=== PATIENT | male | born 1945 | race Caucasian/White ===

== ENCOUNTER → 2023-11-24 12:40 | Outpatient (REF) | payer MEDICARE, SELFPAY | LOC: HWRAD 12:40 | PROVIDERS: ATTENDING PHYSICIAN Radiology Diagnostic Radiology; FAMILY PHYSICIAN Family Medicine | DX: Z13.5 Encounter for screening for eye and ear disorders (principal) | CPT/HCPCS: 70030 ==

== ENCOUNTER → 2023-11-26 16:47 | Outpatient (REF) | payer MEDICARE, SELFPAY | LOC: MRI 16:47 | PROVIDERS: ATTENDING PHYSICIAN Specialist; FAMILY PHYSICIAN Family Medicine | DX: M54.16 Radiculopathy, lumbar region (principal); M54.12 Radiculopathy, cervical region | CPT/HCPCS: 72141; 72148 ==

== ENCOUNTER 2024-12-16 17:12 | Emergency (ER) | payer MEDICARE, SELFPAY ==
[2024-12-16 17:16] VITALS: BP 161/88
[2024-12-16 17:47] LABS: % Basophils 0.5 % (0-2); % Eosinophils 4.6 % (0-6); % Immature Granulocytes 0.8 % (0-0.5); % Lymphocytes 16.9 % (20.5-51.1); % Monocytes 6.4 % (1.7-9.3); % Neutrophils 70.8 % (42.2-75.2); Absolute Basophils 0.1 10^3/uL (0-0.2); Absolute Eosinophils 0.4 10^3/uL (0-0.7); Absolute Immature Granulocytes 0.1 10^3/uL (0-0.05); Absolute Lymphocytes 1.6 10^3/uL (1.2-3.4); Absolute Monocytes 0.6 10^3/uL (0.1-0.6); Absolute Neutrophils 6.5 10^3/uL (1.4-6.5); Hematocrit 46.6 % (39.0-52.0); Hemoglobin 15.8 g/dL (13.0-18.0); Mean Corp Hgb Conc. 33.9 g/dL (33.0-37.0); Mean Corpuscular Volume 94.5 fL (80.0-94.0); Mean Platelet Volume 9.5 fL (7.4-10.4); Nucleated Red Blood Cells % 0 % (-); Platelet Count 158 10^3/uL (130-400); Red Blood Cell Count 4.93 10^6/uL (4.70-6.10); Red Cell Dist. Width 13.1 % (11.5-14.5); White Blood Cell Count 9.2 10^3/uL (4.8-10.8)
[2024-12-16 17:57] LABS: ALT (SGPT) 43 U/L (0-50); AST (SGOT) 26 U/L (17-59); Albumin 4.1 g/dl (3.5-5.0); Alkaline Phosphatase 78 U/L (38-126); Blood Urea Nitrogen 34 mg/dl (9-20); Calcium 8.2 mg/dl (8.4-10.2); Carbon Dioxide 28 mmol/L (22-30); Chloride 106 mmol/L (98-107); Glucose 105 mg/dl (70-99); Potassium 4.2 mmol/L (3.5-5.1); Sodium 143 mmol/L (135-145); Total Bilirubin 0.9 mg/dl (0.2-1.3); Total Protein 6.5 g/dl (6.3-8.2); eGFR 56.23
[2024-12-16 18:06] LABS: COVID-19 Antigen Negative (Negative)
--- NOTE | 2024-12-16 18:43 | ED.GENMED ---
History of Present Illness
General
Chief Complaint: Cold/Flu/URI Symptoms
Source: patient
Exam Limitations: none
Time Seen by Provider: 12/16/24 18:33
Nursing documentation reviewed up to this point in time: agreed with
History of Present Illness
History of Present Illness:
This is a 79-year-old male with a past medical history of stage III kidney disease, GERD, chronic UTIs/bladder cancer s/p ileal conduit who presents to the emergency department today with concerns of 14 days of sinus pressure, cough, and
intermittent shortness of breath and left-sided chest discomfort. Patient reports that these symptoms were started around when he was in [place] for a cruise and states that at that time, the symptoms were also associated with nausea, vomiting, and
diarrhea. He no longer has the diarrhea and nausea. Patient denies any abdominal pain today. Patient reports that he started on azithromycin for possible sinus infection and reports that he still has a few doses left but feels like this is not
helping his symptoms. He tried to call his primary today for an appointment but reports that they do not have any appointments available today. He also reports postnasal drip that started a few days ago as well. He denies any fevers or chills.
He is up-to-date on his vaccinations
Past History
Past History
ED Past Medical History: Cancer (Bladder cancer), HTN, Hypercholesterolemia and Hypothyroidism
ED Past Surgical History: Urological
Social History
Tobacco: Non-smoker
Alcohol: None
Personal:
Living: with family
Employment: Employed
Family History
Family History: Other
Review of Systems
Review of Systems
All Other Systems: ROS reviewed and negative except as documented in HPI and ROS
Phy Exam
Physical Exam
Physical Exam:
General: Patient is well appearing and in no acute distress; non-toxic
Skin: Warm and dry, no rashes or lesions
Head: Normocephalic, atraumatic
Eyes: Sclera non-icteric. EOMs intact.
Cardiac: Regular rate and rhythm, no murmur
Peripheral Vascular: No lower extremity swelling or edema
Pulm: Normal respiratory effort, no wheezes, rales, rhonchi
Abdomen: No abdominal tenderness to palpation
Neuro: CN II-XII intact, no focal neurologic deficits.
Psychiatric: Appropriate mood and affect.
Course
Orders/Labs/Results
Orders:
Orders
12/16/24 17:22
Chest [CR Chest - 2 Views ] Urgent
Comment:
Reason For Exam: cough
12/16/24 17:35
CBC/With ESR Urgent
COVID-19 Antigen Urgent
Source: Nasal Swab
Comprehensive Metabolic Panel Urgent
Influenza A+B Rapid Molecular Urgent
JOSE Source: Nasal Swab
Specimen Description:
12/16/24 18:58
Electrocardiogram (*1) Urgent
Reason for Study: Chest Pain
Amoxicillin 875 mg/Clav 125 mg [Augmentin 875 mg/125 mg] 1 tablet PO NOW STA
Prednisone [Deltasone] 40 mg PO NOW STA
Abnormal Lab Results
12/16/24
17:35
MCV 94.5 H fL
(80.0-94.0)
MCH 32.0 H pg
(27.0-31.0)
Abs Immat Gran (auto) 0.1 H 10^3/uL
(0-0.05)
Immature Gran % 0.8 H %
(0-0.5)
Lymphocytes % 16.9 L %
(20.5-51.1)
BUN 34 H mg/dl
(9-20)
Glucose 105 H mg/dl
(70-99)
Calcium 8.2 L mg/dl
(8.4-10.2)
12/16/24 17:35
12/16/24 17:35
Vital Signs
Initial and Last Documented VS:
Initial Vital Signs
Temp Pulse Resp BP Pulse Ox
98.1 F 92 18 161/88 98
12/16/24 17:16 12/16/24 17:16 12/16/24 17:16 12/16/24 17:16 12/16/24 17:16
Last Documented Vital Signs
Temp Pulse Resp BP Pulse Ox
98.1 F 92 18 161/88 98
12/16/24 17:16 12/16/24 17:16 12/16/24 17:16 12/16/24 17:16 12/16/24 17:16
MDM/Problems Addressed
Differential Diagnosis Includes:
Differentials include community-acquired pneumonia, sinusitis, bronchitis, viral syndrome
MDM/Problems Addressed:
79-year-old male presents emergency department with concerns of persistent cough, sinus pressure, and left-sided chest discomfort. He is currently taking azithromycin without relief. Physical exam he is well-appearing no acute distress. His CMP is
unremarkable. He does have a elevated BUN/creatinine ratio however he does have chronic kidney disease and his BUN is around baseline. Tested negative for flu and COVID. His chest x-ray demonstrates a small sided opacity in the left lower lobe.
Considering patient's symptoms associated with this, did advise patient to continue azithromycin will start Augmentin for further coverage for commune acquired pneumonia. Discussed follow-up with PCP and repeat chest x-ray to ensure resolution.
Also patient on a short burst of steroids. Patient stable for discharge.
Chronic conditions affecting care:
CKD, GERD, bladder cancer
*Pulse Oximetry
Patient hypoxic: no
*Critical Care Note
Total Time (30-74mins, 75-104mins- exclusive of procedures): Not Applicable
Data Reviewed
Review of Other/Old Records Reveals: Records (Reviewed ER physician condition from 01/26/2023 patient seen for eval obstruction, review ER physician documentation from 11/07/2021, patient seen chest pain had unremarkable jem)
Source: patient
ED Attending Note
-
Portions of this chart may have been created with voice recognition software.� Occasional wrong word or��sound alike� substitutions may have occurred due to the inherent limitations of voice recognition software.
Discharge Plan
Departure
Patient Disposition: Home (Routine Discharge)
Date of Disposition: 12/16/24
Time of Disposition: 19:23
Patient with high blood pressure during this ER visit?: Yes
Condition: Good
Discharge Problem:
Left lower lobe pneumonia
Instructions: Pneumonia in adults - Discharge instructions, BLOOD PRESSURE
Prescriptions:
New
prednisone 20 mg tablet
40 mg PO DAILY 4 Days Qty: 8 0RF
amoxicillin-pot clavulanate 875-125 mg tablet
1 tab PO BID 7 Days Qty: 14 0RF
No Action
levothyroxine 25 MCG tablet
25 mcg PO DAILY
amlodipine 10 MG tablet
10 mg PO DAILY
aspirin 81 mg Tablet,Delayed Release (Dr/Ec)
81 mg PO DAILY
polyethylene glycol 3350 [Miralax] 17 gram Powder In Packet
17 g PO DAILY
atorvastatin 20 mg tablet
20 mg PO DAILY
metoprolol succinate 50 mg tablet extended release 24 hr
50 mg PO DAILY
Benefiber (guar gum) Packet
1 tbsp PO DAILY
pantoprazole 40 mg tablet,delayed release (DR/EC)
40 mg PO DAILY
gabapentin 300 mg capsule
300 mg PO HS
Activity Restrictions/Additional Instructions:
Your chest x-ray showed a small opacity in the left lower lung which may present pneumonia.
Augmentin has been sent to your pharmacy. You can take 1 tablet twice daily for 7 days. You can finish the prednisone starting tomorrow for 4 additional days.
PLEASE RETURN EMERGENCY DEPARTMENT SHOULD YOU DEVELOP AN ACUTE WORSENING OF YOUR SYMPTOMS, SHORTNESS OF BREATH, CHEST PAIN, DIZZINESS, LIGHTHEADEDNESS, INTRACTABLE NAUSEA OR VOMITING, ANY OTHER SIGNS OR SYMPTOMS WORRISOME TO YOU.
Interventions
Interventions:
*Risk Screen - Suicide Last Done: 12/16/24 17:16
*General Assessment Last Done: 12/16/24 19:16
*Neglect/Abuse Screening Last Done: 12/16/24 17:16
*ED- Fall Risk Assessment Last Done: 12/16/24 19:16
*ED COVID-19 Vaccine History Last Done: 12/16/24 17:16
*Nursing Disposition Last Done: 12/16/24 19:40
ED- Pulmonary Assessment Last Done: 12/16/24 19:16
Discharge Date and Time
Discharge Date/Time: 12/16/24 19:41
Print Language: TAJIK
[2024-12-16 19:02] LABS: Erythrocyte Sed Rate 2 mm/hour (0-20)
[2024-12-16] MEDS: DELTASONE 40 MG PO (19:16)
[2024-12-16] MEDS: AUGMENTIN 875 MG/125 MG 1 TABLET PO (19:16)
== END 2024-12-16 19:41 | disposition home or self-care (01) ==
LOC: EMR 17:12
PROVIDERS: Student in an Organized Health Care Education/Training Program; EMERGENCY PHYSICIAN Emergency Medicine; FAMILY PHYSICIAN Family Medicine
DX: J18.9 Pneumonia, unspecified organism (principal); K21.9 Gastro-esophageal reflux disease without esophagitis; I12.9 Hypertensive chronic kidney disease with stage 1 through stage 4 chronic kidney disease, or unspecified chronic kidney disease; N18.9 Chronic kidney disease, unspecified; E03.9 Hypothyroidism, unspecified; E78.00 Pure hypercholesterolemia, unspecified; Z79.2 Long term (current) use of antibiotics; Z85.51 Personal history of malignant neoplasm of bladder; Z87.440 Personal history of urinary (tract) infections
CPT/HCPCS: 99283; 71046; 80053; 85025; 85652; 87502; 87811; 93005

== ENCOUNTER → 2025-08-02 11:03 | Outpatient (REF) | payer MEDICARE, SELFPAY | LOC: HWRAD 11:03 | PROVIDERS: ATTENDING PHYSICIAN Specialist; FAMILY PHYSICIAN Internal Medicine Geriatric Medicine | DX: M54.6 Pain in thoracic spine (principal) | CPT/HCPCS: 72070 ==

== ENCOUNTER → 2025-08-12 10:22 | Outpatient (REF) | payer MEDICARE, SELFPAY | LOC: HWRAD 10:22 | PROVIDERS: ATTENDING PHYSICIAN Nurse Practitioner Family | DX: R09.89 Other specified symptoms and signs involving the circulatory and respiratory systems (principal); I10 Essential (primary) hypertension; G62.9 Polyneuropathy, unspecified | CPT/HCPCS: 71046 ==